=== PATIENT | female | born 1940 | race Two or more races ===

== ENCOUNTER → 2019-07-08 | Outpatient (CLI) | payer MEDICARE | END | disposition home or self-care (01) | LOC: RAD 16:13 | PROVIDERS: ATTEND Family Medicine | DX: R10.9 Unspecified abdominal pain (principal) | CPT/HCPCS: 74022 ==

== ENCOUNTER → 2019-12-20 | Outpatient (CLI) | payer MEDICARE ==
[~2019-12-20] MED LIST: OMNIPAQUE 350 MG/ML, 100ML BOTTLE ONE
== END | disposition home or self-care (01) ==
LOC: CFH 12:25
PROVIDERS: ATTEND Family Medicine
DX: D17.5 Benign lipomatous neoplasm of intra-abdominal organs (principal); N28.1 Cyst of kidney, acquired; M51.35 Other intervertebral disc degeneration, thoracolumbar region; K31.89 Other diseases of stomach and duodenum; Q40.2 Other specified congenital malformations of stomach
CPT/HCPCS: 74177; Q9967

== ENCOUNTER 2020-11-01 10:10 | Outpatient (CLI) | payer MEDICARE | END 2020-11-01 23:59 | disposition home or self-care (01) | LOC: PETCFH 10:10 | PROVIDERS: ATTEND Specialist | DX: C17.0 Malignant neoplasm of duodenum (principal); D50.8 Other iron deficiency anemias; E04.2 Nontoxic multinodular goiter; R59.0 Localized enlarged lymph nodes | CPT/HCPCS: 78815; A9552 ==